=== PATIENT | female | born 1990 | race Caucasian/White ===

== ENCOUNTER 2018-12-05 20:27 | Outpatient (CLI) | payer OTHER ==
--- NOTE | 2018-12-05 23:42 | Ultrasound Report ---
Reason: TEST POSITIVE Procedure Date: 12/05/2018 Accession Number: [id number] / [id number] Procedure: US - OB First Trimester CPT Code: FULL RESULT: EXAM: FIRST TRIMESTER OBSTETRIC ULTRASOUND (Less than 11 weeks) EXAM DATE: 12/05/2018 09:24 PM. CLINICAL HISTORY: TEST POSITIVE. LMP: 10/07/2018. COMPARISONS: None. TECHNIQUE: Transabdominal and transvaginal ultrasound examination with static image documentation. CLINICAL DATES: EGA 8 weeks 3 days with JEN 07/14/2019 based on LMP. ASSESSMENT: Gestational Sac: Single intrauterine. Mean gestational sac diameter: 26 mm. Embryo: CRL (crown-rump length) 13.2 mm = 7 weeks 4 days. Cardiac activity: 165 beats per minute. Yolk sac: 3.3 mm. Amniotic fluid: Not accurately assessed at this gestational age. Early placenta: Not visible at this gestational age. Other: Small collection adjacent to the gestational sac measuring 10 x 7 mm. MATERNAL STRUCTURES: Uterus: Anteverted. Unremarkable. Cervix: Closed. Right Ovary/Adnexa: The ovary measures 3.6 x 2.8 x 2.4 cm, volume 12.8 cc. Corpus luteum measuring 1.5 x 1.5 x 1.7 cm. Left Ovary/Adnexa: The ovary measures 2.8 x 1.8 x 1.7 cm, volume 4.5 cc. Unremarkable. Free Fluid: None. Other: None. IMPRESSION: 1. Single viable intrauterine at EGA 7 weeks 4 days with JEN 07/20/2019 based on crown-rump length, which is discordant with clinical dates. 2. Assigned dating is JEN 07/20/2019 based on current US. 3. Corpus luteum on the right. 4. Small hemorrhage adjacent to the gestational sac measuring 10 x 7 mm. RADIA
== END 2018-12-05 20:28 | disposition home or self-care (01) ==
LOC: DI 20:27
PROVIDERS: ATTEND Nurse Practitioner Obstetrics & Gynecology
DX: Z32.01 Encounter for pregnancy test, result positive (principal); O46.91 Antepartum hemorrhage, unspecified, first trimester; Z3A.01 Less than 8 weeks gestation of pregnancy
CPT/HCPCS: 76801; 76817

== ENCOUNTER 2019-01-02 11:06 | Outpatient (CLI) | payer OTHER | END 2019-01-02 11:07 | disposition home or self-care (01) | LOC: LAB.F 11:06 | PROVIDERS: ATTEND Nurse Practitioner Obstetrics & Gynecology | DX: Z36.89 Encounter for other specified antenatal screening (principal) ==

== ENCOUNTER 2019-01-09 10:01 | Outpatient (CLI) | payer OTHER ==
[2019-01-09 11:01] LABS: BASOPHILS % (AUTO) 0.2 %; EOSINOPHILS # (AUTO) 0.2 10^3/uL (0.0-0.7); EOSINOPHILS % (AUTO) 1.7 %; LYMPHOCYTES # (AUTO) 1.8 10^3/uL (1.5-3.5); LYMPHOCYTES % (AUTO) 16.6 %; MEAN CORPUSCULAR HEMOGLOBIN 29.7 pg (27.0-31.0); MEAN CORPUSCULAR HGB CONC 34.8 g/dL (32.0-36.0); MEAN CORPUSCULAR VOLUME 85.5 fL (81.0-99.0); MEAN PLATELET VOLUME 7.9 fL (7.9-10.8); MONOCYTES # (AUTO) 0.4 10^3/uL (0.0-1.0); MONOCYTES % (AUTO) 3.4 %; NEUTROPHILS # (AUTO) 8.5 10^3/uL (1.5-6.6); NEUTROPHILS % (AUTO) 78.1 %; PLT - PLATELET COUNT 280 10^3/uL (130-450); RED CELL DISTRIBUTION WIDTH 13.1 % (12.0-15.0); WHITE BLOOD COUNT 10.9 x10^3/uL (4.8-10.8)
[2019-01-09 11:02] LABS: BILIRUBIN,URINE NEGATIVE (NEGATIVE); GLUCOSE, URINE (UA) NEGATIVE (NEGATIVE); KETONES,URINE (UA) 15 mg/dL (NEGATIVE); LEUKOCYTE ESTERASE, URINE NEGATIVE (NEGATIVE); NITRITE,URINE NEGATIVE (NEGATIVE); OCCULT BLOOD,URINE NEGATIVE (NEGATIVE); PROTEIN,URINE NEGATIVE (NEGATIVE); UROBILINOGEN,URINE 0.2 (NORMAL) E.U./dL (NORMAL)
[2019-01-09 11:15] LABS: ALBUMIN 3.9 g/dL (3.2-5.5); ALBUMIN/GLOBULIN RATIO 1.1 (1.0-2.2); BILIRUBIN,TOTAL 0.6 mg/dL (0.2-1.0); CREATININE 0.7 mg/dL (0.4-1.0); TOTAL PROTEIN 7.3 g/dL (6.7-8.2)
[2019-01-09 11:16] LABS: CLARITY,URINE HAZY (CLEAR)
[2019-01-09 11:19] LABS: BACTERIA,URINE Few /HPF (None Seen); MUCUS,URINE Moderate Strands; RBC,URINE 0-5 /HPF (0-5); SQUAMOUS EPITHELIAL CELL,UR FEW Squamous (<= Few)
[2019-01-09 11:39] LABS: HB2 TOTAL 15.4 g/dL; HEMOGLOBIN A1C 0.45 g/dL; HEMOGLOBIN A1C % 4.8 % (4.6-6.2)
[2019-01-10 13:12] LABS: HIV AG/AB 4TH GEN NON-REACTIVE (NON-REACTIVE)
[2019-01-10 13:51] LABS: HEPATITIS C ANTIBODY NON-REACTIVE (NON-REACTIVE)
[2019-01-10 14:17] LABS: HEPATITIS B SURFACE ANTIGEN NON-REACTIVE (NON-REACTIVE)
== END 2019-01-09 10:02 | disposition home or self-care (01) ==
LOC: LAB 10:01
PROVIDERS: ATTEND Nurse Practitioner Obstetrics & Gynecology
DX: Z36.89 Encounter for other specified antenatal screening (principal)
CPT/HCPCS: 36415; 80053; 81001; 81599; 82951; 83036; 85025; 86592; 86762; 86803; 86850; 86900; 86901; 87086; 87340; 87389

== ENCOUNTER 2019-01-12 18:36 | Outpatient (CLI) | payer OTHER | END 2019-01-12 18:37 | disposition home or self-care (01) | LOC: LAB 18:36 | PROVIDERS: ATTEND Nurse Practitioner Obstetrics & Gynecology | DX: Z36.89 Encounter for other specified antenatal screening (principal) | CPT/HCPCS: 87275; 87276 ==

== ENCOUNTER 2019-01-31 11:46 | Emergency (ER) | payer OTHER ==
[2019-01-31] MEDS ORDERED: diphenhydrAMINE INJ 50 MG/ML VIAL IVP STA (13:05)
[2019-01-31] MEDS ORDERED: METOCLOPRAMIDE 10 MG/2 ML VIAL IVP STA (13:05)
--- NOTE | 2019-01-31 13:07 | ED Physician Documentation ---
PD HPI FOCAL NEURO - Stated complaint Stated Complaint: DIZZY, HEADACHE - Chief complaint Chief Complaint: Neuro - History obtained from History obtained from: Patient - History of Present Illness Timing - onset: Other (This is a G1 at 16 weeks who comes in complaining of dizziness and headache. The dizziness has been going on for the last 10 weeks on and off ever since she was 6 weeks . She feels like she is kind of canted to the right. It happens often when she is walking. She has had some intermittent mild right ear pain with it, but that is now gone. Since yesterday she had a gradual onset occipital headache similar to prior migraines. It is not the worst headache of her life. She is light sensitive with it. There is no associated fever or neck stiffness.) Review of Systems Constitutional: denies: Fever, Chills Nose: denies: Rhinorrhea / runny nose, Congestion Throat: denies: Sore throat Cardiac: denies: Chest pain / pressure Respiratory: denies: Dyspnea, Cough GI: denies: Abdominal Pain, Nausea, Vomiting, Diarrhea : reports: Now EGA. denies: Vaginal bleeding PD PAST MEDICAL HISTORY - Present Medications Home Medications: Ambulatory Orders Medication Instructions Recorded Confirmed Metoclopramide [Reglan] 10 mg PO Q6H PRN #20 tablet 01/31/19 Pnv No.95/Ferrous Fum/Folic AC 1 each PO DAILY 01/31/19 01/31/19 [ [place]] - Allergies Allergies/Adverse Reactions: Allergies Allergy/AdvReac Type Severity Reaction Status Date / Time No Known Drug Allergies Allergy Verified 01/31/19 11:59 - Social History Does the pt smoke?: No Smoking Status: Never smoker PD ED PE NORMAL - Vitals Vital signs reviewed: Yes - General General: Alert and oriented X 3, No acute distress - HEENT HEENT: PERRL, EOMI, Ears normal - Neck Neck: Supple, no meningeal sign, No bony TTP - Cardiac Cardiac: RRR, No murmur - Respiratory Respiratory: No respiratory distress, Clear bilaterally - Abdomen Abdomen: Non tender, Other (Bedside ultrasound demonstrates single live intrauterine with heart rate of 150.) - Back Back: No CVA TTP, No spinal TTP - Derm Derm: Normal color, Warm and dry - Extremities Extremities: No edema, No calf tenderness / cord - Neuro Neuro: Alert and oriented X 3, ecological technical officer 2-12 intact, Normal speech Eye Opening: Spontaneous Motor: Obeys Commands Verbal: Oriented GCS Score: 15 - Psych Psych: Normal mood, Normal affect Results - Vitals Vitals: Vital Signs - 24 hr 01/31/19 11:55 Temperature 35.6 C L Heart Rate 84 Respiratory 14 Rate Blood Pressure 100/59 L O2 Saturation 98 Oxygen O2 Source Room air - Labs Labs: Laboratory Tests 01/31/19 01/31/19 12:02 13:10 POC Whole Bld Glucose 102 H Urine Color YELLOW Urine Clarity CLEAR Urine pH 6.5 Ur Specific [place] <=1.005 Urine Protein NEGATIVE Urine Glucose (UA) NEGATIVE Urine Ketones NEGATIVE Urine Occult Blood NEGATIVE Urine Nitrite NEGATIVE Urine Bilirubin NEGATIVE Urine Urobilinogen 0.2 (NORMAL) Ur Leukocyte Esterase NEGATIVE Ur Microscopic Review NOT INDICATED Urine Culture Comments NOT INDICATED PD MEDICAL DECISION MAKING - ED course ED course: 28-year-old woman with migraines since yesterday. It was gradual in onset and typical for her usual migraines except that is lasting longer. She usually takes ibuprofen at home but is not taking that because of her status. She also notes that she feels dizzy but that is not acute, it has been going on for the last 10 weeks. We discussed cranial imaging but opted to trial migraine medication first, after the administration of Benadryl and Reglan IV both the dizziness and migraine were much better and she requested discharge. Departure - Departure Disposition: 01 Home, Self Care Clinical Impression: Migraine Qualifiers: Migraine type: without aura Status migrainosus presence: with status migrainosus Intractability: not intractable Qualified Code(s): G43.001 - Migraine without aura, not intractable, with status migrainosus Condition: Good Record reviewed to determine appropriate education?: Yes Instructions: ED Headache Migraine Prescriptions: Metoclopramide [Reglan] 10 mg PO Q6H PRN #20 tablet PRN Reason: nausea or headache Comments: Call your doctor to arrange a follow-up appointment, make the next available appointment. In the interim, return anytime if worse or if new symptoms develop.
[2019-01-31 13:35] LABS: BILIRUBIN,URINE NEGATIVE (NEGATIVE); GLUCOSE, URINE (UA) NEGATIVE (NEGATIVE); KETONES,URINE (UA) NEGATIVE (NEGATIVE); LEUKOCYTE ESTERASE, URINE NEGATIVE (NEGATIVE); NITRITE,URINE NEGATIVE (NEGATIVE); OCCULT BLOOD,URINE NEGATIVE (NEGATIVE); PH,URINE 6.5 PH (5.0-7.5); PROTEIN,URINE NEGATIVE (NEGATIVE); UROBILINOGEN,URINE 0.2 (NORMAL) E.U./dL (NORMAL)
[2019-01-31 13:44] LABS: CLARITY,URINE CLEAR (CLEAR)
[2019-01-31 14:12] VITALS: BP 106/63
== END 2019-01-31 14:13 | disposition home or self-care (01) ==
LOC: ED 11:46
DX: O99.89 Other specified diseases and conditions complicating pregnancy, childbirth and the puerperium (principal); G43.001 Migraine without aura, not intractable, with status migrainosus; Z3A.16 16 weeks gestation of pregnancy
CPT/HCPCS: 81003; 96374; 96375; 99283; J1200; J2765; 81001; 87086

== ENCOUNTER 2019-02-27 08:13 | Outpatient (CLI) | payer OTHER ==
--- NOTE | 2019-02-27 14:55 | Ultrasound Report ---
Reason: ENCOUNTER FOR SCREENING,UNSPECIFIED Procedure Date: 02/27/2019 Accession Number: [id number] / [id number] Procedure: US - OB Detailed Eval CPT Code: FULL RESULT: EXAM: COMPLETE OBSTETRICAL ULTRASOUND EXAM DATE: 02/27/2019 08:34 AM. CLINICAL HISTORY: anatomic survey. COMPARISON: 12/05/2018. TECHNIQUE: Real-time sonographic evaluation of the fetus performed by the certified court interpreter. Multiple motor vehicle field representative static images were saved for review. DATING: Established EGA 20 weeks 3 days with JEN 07/14/2019 based on physician stated. EGA 19 weeks 4 days with JEN 07/20/2019 based on prior ultrasound. EGA 20 weeks 3 days with JEN 07/14/2019 based on the current ultrasound. GENERAL EVALUATION Weeks . Cardiac activity: 144 bpm. movement: Visualized. Presentation: Breech. Placenta: Anterior position. No evidence for previa. Umbilical cord: 3 vessel cord. Central placental cord origin. Amniotic fluid: Subjectively normal with a four-quadrant JAMI of 14.2 cm. MVP 4.9 cm. BIOMETRY Bi-Parietal Diameter (BPD): 4.6 cm, 20 weeks 0 days Head Circumference (HC): 17 cm, 19 weeks 4 days Abdominal Circumference (AC): 16 cm, 21 weeks 0 days Femur Length (FL): 3.2 cm, 20 weeks 1 day Estimated Weight: 357 g, 48 percentile for 20 weeks 3 days. ANATOMY The intracranial structures, profile, face/nose/lips, spine, 4 chamber heart and outflow tracts, stomach, abdominal wall and cord insertion, diaphragm, kidneys, bladder, and extremities were visualized and demonstrate no abnormality. MATERNAL STRUCTURES Uterus: Unremarkable. Cervix: Long and closed. Transabdominal length 5 cm. Right ovary/adnexa: Unremarkable. Left ovary/adnexa: Unremarkable. Free fluid: None. IMPRESSION: 1. Weeks live intrauterine with gestational age 20 weeks 3 days based on physician stated. 2. Estimated weight is within expected limits for assigned dating. 3. Normal anatomic survey. No anatomic abnormalities are detected at this time. RADIA
== END 2019-02-27 08:14 | disposition home or self-care (01) ==
LOC: DI 08:13
PROVIDERS: ATTEND Nurse Practitioner Obstetrics & Gynecology
DX: Z36.9 Encounter for antenatal screening, unspecified (principal)
CPT/HCPCS: 76811

== ENCOUNTER 2019-07-27 18:47 | Outpatient (CLI) | payer OTHER ==
--- NOTE | 2019-07-27 21:55 | Ultrasound Report ---
Reason: , POST DATES JAMI Procedure Date: 07/27/2019 Accession Number: [id number] / [id number] Procedure: US - OB Limited CPT Code: FULL RESULT: EXAM: LIMITED OBSTETRICAL ULTRASOUND EXAM DATE: 07/27/2019 07:06 PM. CLINICAL HISTORY: , POST DATES JAMI. COMPARISON: None. TECHNIQUE: Real-time sonographic evaluation of the fetus performed by the patient transition specialist. Multiple welding equipment sales representative static images were saved for review. DATING: Established EGA 41 weeks 0 days with JEN 07/20/2019. GENERAL EVALUATION Weeks . Cardiac activity: 142 bpm. movement: Visualized. Presentation: Cephalic. Placenta: Anterior position. Amniotic fluid: Normal. JAIM 11.6 cm. MVP 3.4 cm. ANATOMY Grossly unremarkable. MATERNAL STRUCTURES Grossly unremarkable. Cervix not seen. IMPRESSION: 1. Weeks live cephalic intrauterine with gestational age 41 weeks 0 days based on established JEN. 2. JAMI 11.6. RADIA The call report notification system was initiated by Dr. Mike Larson at 09:32 PM on 07/27/2019. The above call report findings were discussed with Nicolette Conway by Dr. Mike Larson at 09:53 PM on 07/27/2019.
== END 2019-07-27 18:48 | disposition home or self-care (01) ==
LOC: DI 18:47
PROVIDERS: ATTEND Midwife
DX: O48.0 Post-term pregnancy (principal); Z3A.41 41 weeks gestation of pregnancy
CPT/HCPCS: 76815

== ENCOUNTER 2019-09-10 10:31 | Outpatient (CLI) | payer OTHER ==
[2019-09-10 10:40] LABS: HGB - HEMOGLOBIN 11.4 g/dL (12.0-16.0); MEAN CORPUSCULAR HGB CONC 31.5 g/dL (32.0-36.0); MEAN CORPUSCULAR VOLUME 82.6 fL (81.0-99.0); MEAN PLATELET VOLUME 9.3 fL (7.9-10.8); RED BLOOD COUNT 4.38 10^6/uL (4.20-5.40); RED CELL DISTRIBUTION WIDTH 13.6 % (12.0-15.0); WHITE BLOOD COUNT 8.5 x10^3/uL (4.8-10.8)
== END 2019-09-10 10:32 | disposition home or self-care (01) ==
LOC: LAB 10:31
PROVIDERS: ATTEND Nurse Practitioner Obstetrics & Gynecology
DX: R42 Dizziness and giddiness (principal)
CPT/HCPCS: 36415; 85027

== ENCOUNTER 2019-10-23 13:01 | Outpatient (CLI) | payer OTHER ==
--- NOTE | 2019-10-23 18:36 | XRAY Report ---
Reason: SHOULDER AND ELBOW PAIN, RIGHT Procedure Date: 10/23/2019 Accession Number: [id number] / [id number] Procedure: XRS - Shoulder 2 View RT CPT Code: Final Report FULL RESULT: EXAM: RIGHT SHOULDER RADIOGRAPHY, 3 VIEWS RIGHT ELBOW, 2 VIEWS EXAM DATE: 10/23/2019 01:39 PM. CLINICAL HISTORY: SHOULDER AND ELBOW PAIN, RIGHT. COMPARISON: None. FINDINGS: Shoulder: The osseous structures are intact and well-aligned. The glenohumeral joint is normal. The acromioclavicular joint and coracoclavicular space are normal. There is no focal soft tissue swelling or demineralization. The visible portion of the right lung is clear. Elbow: Mild soft tissue edema is seen over the medial elbow. There is no joint effusion. The radiocapitellar alignment is maintained. The osseous structures are intact and well aligned. The bone mineralization is normal. IMPRESSION: No acute osseous abnormality. RADIA
--- NOTE | 2019-10-23 18:36 | XRAY Report ---
Reason: SHOULDER ELBOW PAIN, RIGHT Procedure Date: 10/23/2019 Accession Number: [id number] / [id number] Procedure: XRS - Elbow 2 View RT CPT Code: Final Report FULL RESULT: EXAM: RIGHT SHOULDER RADIOGRAPHY, 3 VIEWS RIGHT ELBOW, 2 VIEWS EXAM DATE: 10/23/2019 01:39 PM. CLINICAL HISTORY: SHOULDER AND ELBOW PAIN, RIGHT. COMPARISON: None. FINDINGS: Shoulder: The osseous structures are intact and well-aligned. The glenohumeral joint is normal. The acromioclavicular joint and coracoclavicular space are normal. There is no focal soft tissue swelling or demineralization. The visible portion of the right lung is clear. Elbow: Mild soft tissue edema is seen over the medial elbow. There is no joint effusion. The radiocapitellar alignment is maintained. The osseous structures are intact and well aligned. The bone mineralization is normal. IMPRESSION: No acute osseous abnormality. RADIA
== END 2019-10-23 13:02 | disposition home or self-care (01) ==
LOC: DI.S 13:01
PROVIDERS: ATTEND Family Medicine
DX: M25.511 Pain in right shoulder (principal); M25.521 Pain in right elbow

== ENCOUNTER 2021-03-31 08:59 | Outpatient (CLI) | payer OTHER ==
[2021-03-31 12:14] LABS: BASOPHILS # (AUTO) 0.1 10^3/uL (0.0-0.1); BASOPHILS % (AUTO) 0.5 %; EOSINOPHILS # (AUTO) 0.4 10^3/uL (0.0-0.7); EOSINOPHILS % (AUTO) 3.8 %; HCT - HEMATOCRIT 43.1 % (37.0-47.0); HGB - HEMOGLOBIN 14.4 g/dL (12.0-16.0); LYMPHOCYTES # (AUTO) 2.7 10^3/uL (1.5-3.5); LYMPHOCYTES % (AUTO) 27.5 %; MEAN CORPUSCULAR HEMOGLOBIN 29.3 pg (27.0-31.0); MEAN CORPUSCULAR HGB CONC 33.4 g/dL (32.0-36.0); MEAN CORPUSCULAR VOLUME 87.6 fL (81.0-99.0); MEAN PLATELET VOLUME 9.9 fL (7.9-10.8); MONOCYTES # (AUTO) 0.4 10^3/uL (0.0-1.0); MONOCYTES % (AUTO) 3.9 %; NEUTROPHILS # (AUTO) 6.2 10^3/uL (1.5-6.6); NEUTROPHILS % (AUTO) 63.8 %; PLT - PLATELET COUNT 311 10^3/uL (130-450); RED BLOOD COUNT 4.92 10^6/uL (4.20-5.40); RED CELL DISTRIBUTION WIDTH 12.3 % (12.0-15.0); WHITE BLOOD COUNT 9.8 x10^3/uL (4.8-10.8)
[2021-03-31 12:38] LABS: ALBUMIN 4.7 g/dL (3.2-5.5); ALBUMIN/GLOBULIN RATIO 1.6 (1.0-2.2); BILIRUBIN,TOTAL 0.8 mg/dL (0.2-1.0); CALCIUM 9.2 mg/dL (8.5-10.3); CREATININE 0.8 mg/dL (0.4-1.0); POTASSIUM 3.9 mmol/L (3.5-5.0); TOTAL PROTEIN 7.7 g/dL (6.7-8.2)
[2021-03-31 12:42] LABS: THYROID STIMULATING HORMONE 1.54 uIU/mL (0.34-5.60)
== END 2021-03-31 09:00 | disposition home or self-care (01) ==
LOC: LAB.N 08:59
PROVIDERS: ATTEND Registered Nurse
DX: F41.9 Anxiety disorder, unspecified (principal); F32.9 Major depressive disorder, single episode, unspecified; G43.909 Migraine, unspecified, not intractable, without status migrainosus
CPT/HCPCS: 36415; 80053; 84443; 85025

== ENCOUNTER 2021-07-31 08:00 | Outpatient (CLI) | payer BC, OTHER ==
[2021-07-31 20:17] LABS: CREATINE KINASE MB 0.8 ng/mL (0.6-6.3)
[2021-07-31 21:09] LABS: TROPONIN I HIGH SENSITIVITY 2.7 ng/L (2.3-14.8)
== END 2021-07-31 23:59 | disposition home or self-care (01) ==
LOC: LAB.S 08:00
PROVIDERS: ATTEND Family Medicine
DX: R55 Syncope and collapse (principal)
CPT/HCPCS: 36415; 82553; 84484; 85379

== ENCOUNTER 2021-07-31 17:11 | Outpatient (CLI) | payer BC, OTHER ==
--- NOTE | 2021-07-31 19:27 | XRAY Report ---
PROCEDURE: Chest 2 View X-Ray INDICATIONS: SYNCOPE TECHNIQUE: 2 view(s) of the chest. COMPARISON: None. FINDINGS: Surgical changes and devices: None. Lungs and pleura: No pleural effusions or pneumothorax. Lungs are clear. Mediastinum: Mediastinal contours are normal. Heart size is normal. Bones and chest wall: No suspicious bony abnormalities. Soft tissues appear unremarkable. IMPRESSION: Chest without acute cardiopulmonary abnormalities. Reviewed by: Henry Horton MD on 07/31/2021 7:26 PM PDT Approved by: Henry Horton MD on 07/31/2021 7:26 PM PDT Station ID: [id number]
== END 2021-07-31 23:59 | disposition home or self-care (01) ==
LOC: DI.S 17:11
PROVIDERS: ATTEND Family Medicine
DX: R55 Syncope and collapse (principal)

== ENCOUNTER 2023-02-16 12:53 | Emergency (ER) | payer BC, MEDICAID ==
--- NOTE | 2023-02-16 15:06 | ED Physician Documentation ---
History of Present Illness - Stated complaint Stated Complaint: FEVER/BODYACHES - Chief complaint Chief Complaint: General - History obtained from History obtained from: Patient - Additonal information Additional information: The patient comes to the emergency department chief complaint of fever, subjective. She states that she just had a baby 2 days ago vaginally, and is mainly concerned because she had a tear and had to be stitched up. She was playing with her 3-year-old yesterday when she felt a pull on the sutures and is concerned that she injured the tear site and that this has become infected. The patient denies any focused symptoms whatsoever otherwise. She denies any respiratory symptoms. She is breast-feeding but denies any redness or tenderness of her breasts. No increase in abdominal tenderness. She denies any change in her lochia and denies any other discharge besides blood. No worsening of the small. She denies any dysuria or back pain. No nausea or vomiting. No other complaints at this time. The baby was born without any complications at full-term. PD PAST MEDICAL HISTORY - Present Medications Home Medications: Ambulatory Orders Medication Instructions Recorded Confirmed Sulfamethox/Trimeth 800/160 1 each PO BID #14 tablet 02/16/23 [Bactrim Ds 800/160] Amoxicillin 500 mg PO TID #15 cap 02/17/23 - Allergies Allergies/Adverse Reactions: Allergies Allergy/AdvReac Type Severity Reaction Status Date / Time No Known Drug Allergies Allergy Verified 01/31/19 11:59 - Social History Does the pt smoke?: No Smoking Status: Never smoker PD ED PE NORMAL - Vitals Vital signs reviewed: Yes - General General: Alert and oriented X 3, No acute distress, Well developed/nourished - HEENT HEENT: Atraumatic, PERRL, EOMI, Moist mucous membranes - Neck Neck: Supple, no meningeal sign - Cardiac Cardiac: RRR, No murmur, Strong equal pulses - Respiratory Respiratory: No respiratory distress, Clear bilaterally - Abdomen Abdomen: Soft, Non distended, Other (Mild suprapubic tenderness which seems appropriate for the patient's very recent delivery.) - Female Female : Other (Normal external female genitalia. Appropriate Erythema and excoriation of the inner labia and vaginal introitus, consistent with recent de livery. No drainage from wound. Sutures in place. No bleeding. No induration.) - Back Back: No CVA TTP - Derm Derm: Normal color, Warm and dry, No rash - Extremities Extremities: No deformity - Neuro Neuro: Alert and oriented X 3 - Psych Psych: Normal mood, Normal affect Results - Vitals Vitals: Oxygen O2 Source Room air - Labs Labs: Microbiology 02/16/23 13:10 Urine Culture - Final Urine,Random Beta Hemolytic Strep Group G Laboratory Tests 02/16/23 13:10 Urine Color YELLOW Urine Clarity CLEAR Urine pH 6.5 Ur Specific [place] 1.010 Urine Protein NEGATIVE Urine Glucose (UA) NEGATIVE Urine Ketones NEGATIVE Urine Occult Blood LARGE H Urine Nitrite NEGATIVE Urine Bilirubin NEGATIVE Urine Urobilinogen 0.2 (NORMAL) Ur Leukocyte Esterase MODERATE H Urine RBC 11-25 H Urine WBC 11-25 H Ur Squamous Epith Cells FEW Squamous Urine Bacteria Few Urine Mucus Few Strands Ur Microscopic Review INDICATED Urine Culture Comments INDICATED PD Medical Decision Making - ED course Complexity details: reviewed results, re-evaluated patient, considered diffe rential, d/w patient ED course: The patient's examination was actually very benign and her wound looked fine. The lochia that was observed was an appropriate mix of reddish-brown blood and mucus. There is no evidence of tissue infection surrounding the wound site. Her UA was positive, however. We have started antibiotics here, and have discussed the usual indications for follow-up and return. Departure - Departure Disposition: 01 Home, Self Care Clinical Impression: UTI (urinary tract infection) Qualifiers: Urinary tract infection type: acute cystitis Hematuria presence: with hematuria Qualified Code(s): N30.01 - Acute cystitis with hematuria Condition: Stable Instructions: ED UTI Cystitis Female Prescriptions: Amoxicillin 500 mg PO TID #15 cap Sulfamethox/Trimeth 800/160 [Bactrim Ds 800/160] 1 each PO BID #14 tablet Comments: Your urinalysis was positive for infection. There is no evidence of a more serious cause of your fever and there is no evidence that you have an infection in your uterus or your repaired wound at your vaginal introitus. Please take the antibiotics prescribed for your urinary tract infection. Your prescription has been electronically transmitted to [facility], your pharmacy of choice on record. Discharge Date/Time: 02/16/23 15:48
[2023-02-16 15:21] LABS: BILIRUBIN,URINE NEGATIVE (NEGATIVE); GLUCOSE, URINE (UA) NEGATIVE (NEGATIVE); KETONES,URINE (UA) NEGATIVE (NEGATIVE); LEUKOCYTE ESTERASE, URINE MODERATE (NEGATIVE); NITRITE,URINE NEGATIVE (NEGATIVE); OCCULT BLOOD,URINE LARGE (NEGATIVE); PH,URINE 6.5 PH (5.0-7.5); PROTEIN,URINE NEGATIVE (NEGATIVE); UROBILINOGEN,URINE 0.2 (NORMAL) E.U./dL (NORMAL)
[2023-02-16 15:22] LABS: CLARITY,URINE CLEAR (CLEAR)
[2023-02-16 15:25] VITALS: BP 105/67
[2023-02-16 15:36] LABS: BACTERIA,URINE Few /HPF (None Seen); MUCUS,URINE Few Strands; SQUAMOUS EPITHELIAL CELL,UR FEW Squamous (<= Few)
[2023-02-16] MEDS ORDERED: SULFAMETH/TRIMETH DS 800/160 MG TABLET PO STA (15:37)
--- NOTE | 2023-02-17 18:58 | ED Physician Documentation ---
ED Addendum - Addendum Addendum: 02/17/23 18:58 Cultures reviewed, given the causative organism, I would not expect this to necessarily be susceptible to Bactrim and we changed her over to amoxicillin 500 mg p.o. 3 times daily for 5 days.
== END 2023-02-16 15:48 | disposition home or self-care (01) ==
LOC: ED 12:53
DX: O86.22 Infection of bladder following delivery (principal); N30.01 Acute cystitis with hematuria
CPT/HCPCS: 81001; 81003; 87086; 99283

== ENCOUNTER 2023-08-03 08:00 | Outpatient (CLI) | payer MEDICAID | END 2023-08-03 23:59 | disposition home or self-care (01) | LOC: LAB.S 08:00 | PROVIDERS: ATTEND Physician Assistant Medical | DX: J36 Peritonsillar abscess (principal) | CPT/HCPCS: 87070; 87077 ==

== ENCOUNTER 2024-01-30 09:27 | Outpatient (CLI) | payer MEDICAID ==
[2024-01-30 15:46] LABS: BASOPHILS # (AUTO) 0.1 10^3/uL (0.0-0.1); BASOPHILS % (AUTO) 0.6 %; EOSINOPHILS # (AUTO) 0.7 10^3/uL (0.0-0.7); EOSINOPHILS % (AUTO) 7.6 %; HCT - HEMATOCRIT 42.6 % (37.0-47.0); HGB - HEMOGLOBIN 14.2 g/dL (12.0-16.0); LYMPHOCYTES # (AUTO) 2.3 10^3/uL (1.5-3.5); LYMPHOCYTES % (AUTO) 24.4 %; MEAN CORPUSCULAR HEMOGLOBIN 29.6 pg (27.0-31.0); MEAN CORPUSCULAR HGB CONC 33.3 g/dL (32.0-36.0); MEAN CORPUSCULAR VOLUME 88.8 fL (81.0-99.0); MEAN PLATELET VOLUME 9.5 fL (7.9-10.8); MONOCYTES # (AUTO) 0.6 10^3/uL (0.0-1.0); MONOCYTES % (AUTO) 6.2 %; NEUTROPHILS # (AUTO) 5.8 10^3/uL (1.5-6.6); NEUTROPHILS % (AUTO) 60.8 %; PLT - PLATELET COUNT 333 10^3/uL (130-450); RED CELL DISTRIBUTION WIDTH 13.5 % (12.0-15.0); WHITE BLOOD COUNT 9.5 x10^3/uL (4.8-10.8)
[2024-01-30 16:03] LABS: THYROID STIMULATING HORMONE 0.77 uIU/mL (0.34-5.60)
[2024-01-30 16:48] LABS: ALBUMIN 4.3 g/dL (3.2-5.5); ALBUMIN/GLOBULIN RATIO 1.4 (1.0-2.2); ALKALINE PHOSPHATASE 78 IU/L (42-121); ALT ALANINE AMINOTRANSFERASE 22 IU/L (10-60); AST ASPARTATE AMINOTRANSFERASE 19 IU/L (10-42); BILIRUBIN,TOTAL 0.5 mg/dL (0.2-1.0); BUN - BLOOD UREA NITROGEN 9 mg/dL (6-20); CALCIUM 9.6 mg/dL (8.5-10.3); CARBON DIOXIDE - CO2 28 mmol/L (21-32); CHLORIDE 106 mmol/L (101-111); CHOL/HDL RATIO 3.8 (<4.4); CHOLESTEROL 127 mg/dL; CREATININE 0.7 mg/dL (0.6-1.3); GFR - MDRD 97 (>89); GLUCOSE 87 mg/dL (74-104); HDL CHOLESTEROL 33 mg/dL; LDL CHOLESTEROL,CALCULATED 64 mg/dL; LDL/HDL RATIO 1.9 (<4.4); POTASSIUM 3.9 mmol/L (3.5-4.5); SODIUM 139 mmol/L (135-145); TOTAL PROTEIN 7.3 g/dL (6.4-8.9); TRIGLYCERIDES 152 mg/dL (48-352); VLDL CHOLESTEROL 30 mg/dL
== END 2024-01-30 09:28 | disposition home or self-care (01) ==
LOC: LAB.S 09:27
PROVIDERS: ATTEND Registered Nurse
DX: Z13.228 Encounter for screening for other metabolic disorders (principal); Z13.220 Encounter for screening for lipoid disorders; Z13.29 Encounter for screening for other suspected endocrine disorder; Z13.0 Encounter for screening for diseases of the blood and blood-forming organs and certain disorders involving the immune mechanism
CPT/HCPCS: 36415; 80050; 80061; 83721